=== PATIENT | female | born 1955 | race Caucasian/White ===

== ENCOUNTER 2017-01-15 15:18 | Emergency (ER) | payer OTHER ==
[~2017-01-15] VITALS: Ht 165.1 cm; Wt 102.1 kg
[2017-01-15] MEDS ORDERED: LIPITOR20 MG PO (15:30)
[2017-01-15] MEDS ORDERED: BUPROPION HCL300 MG PO (15:30)
[2017-01-15] MEDS ORDERED: LEVOTHYROXINE0.1 MG PO (15:30)
[2017-01-15] MEDS ORDERED: SEROQUEL50 MG PO (15:31)
[2017-01-15] MEDS ORDERED: SINGULAIR10 M1 PO (15:31)
[2017-01-15] MEDS ORDERED: CLONAZEPAM0.5 M1 PO (15:31)
[2017-01-15] MEDS ORDERED: TRINTELLIX20 MG PO (15:31)
== END 2017-01-15 16:48 | disposition home or self-care (01) ==
LOC: ED 15:18
DX: S00.83XA Contusion of other part of head, initial encounter (principal); Z88.2 Allergy status to sulfonamides; Z88.6 Allergy status to analgesic agent; Z79.899 Other long term (current) drug therapy; W18.09XA Striking against other object with subsequent fall, initial encounter; Y93.01 Activity, walking, marching and hiking; Y92.511 Restaurant or cafe as the place of occurrence of the external cause; Y99.9 Unspecified external cause status